=== PATIENT | male | born 1955 | race Caucasian/White ===

== ENCOUNTER 2024-01-15 21:49 | Emergency (ER) | payer MEDICARE, BC ==
[~2024-01-15 21:49] MED LIST: ALBU8.5H8 INH; ASPI-618 PO; ATOR10TA PO; CARV3.122 PO; FLUT1DIS28 IH; Furosemide PO; Lisinopril PO; MULT-1045 PO; POTA20PA40 PO
== END 2024-01-15 22:45 | disposition left against medical advice (07) ==
LOC: ER 21:49
DX: R52 Pain, unspecified (principal); Z53.21 Procedure and treatment not carried out due to patient leaving prior to being seen by health care provider